=== PATIENT | female | born 1955 ===

== ENCOUNTER 2018-12-26 20:37 | Emergency (ER) | payer OTHER ==
[2018-12-26 20:56] VITALS: BP 136/79; PULSE 65; TEMP 98; BMI 23.1
--- NOTE | 2018-12-26 22:30 | PDOC ---
Documentation entered by Franchesca Vergara SCRIBE, acting as scribe for Felicia Tarn MD. Felicia Tran MD: This documentation has been prepared by the Ursula dave Daisy, SCRIBE, under my direction and personally reviewed by me in its entirety. I confirm that the documentation accurately reflects all work , treatment, procedures, and medical decision making performed by me. History of Present Illness - General Chief Complaint: Injury Stated Complaint: FELL DOWN 3-5 STEPS FACIAL INJURY AND ABRASIONS Time Seen by Provider: 12/26/18 20:47 History Source: Patient Exam Limitations: No Limitations - History of Present Illness Initial Comments: 12/26/18 21:43 The patient is a 63 YOF with a PMH of HLD who presents to the ER with an abrasion to the nose s/p fall prior to arrival. Patient reports she was wearing flip flops, accidentally tripped and fell down 5 staircases earlier today. Patient also noticed an abrasion to the left shoulder and left knee with pain. Denies any loss of consciousness. She reports the fall was witnessed by the son- in-law. Denies any cp, sob, N/V/D/C. Allergies: NKDA ADULT ROS GENERAL/CONSTITUTIONAL: No fever or chills. No weakness. HEAD, EYES, EARS, NOSE AND THROAT: No change in vision. No ear pain or discharge. No sore throat. (+) Abrasion to the nose. CARDIOVASCULAR: No chest pain or shortness of breath. RESPIRATORY: No cough, wheezing, or hemoptysis. GASTROINTESTINAL: No nausea, vomiting, diarrhea or constipation. GENITOURINARY: No dysuria, frequency, or change in urination. MUSCULOSKELETAL: No joint or muscle swelling or pain. No neck or back pain. SKIN: (+) Abrasion to the left shoulder and left knee. NEUROLOGIC: No headache, vertigo, loss of consciousness, or change in strength/ sensation. ENDOCRINE: No increased thirst. No abnormal weight change. HEMATOLOGIC/LYMPHATIC: No anemia, easy bleeding, or history of blood clots. ALLERGIC/IMMUNOLOGIC: No hives or skin allergy. ADULT EXAM GENERAL: Awake, alert, and fully oriented, in no acute distress HEAD: (+) abrasion on the forehead and cheeks bilaterally. EYES: PERRLA, EOMI, sclera anicteric, conjunctiva clear ENT: (+) palpable fracture to the nasal spine with a superficial laceration, no septal hematoma. (+) contusion inside the lips bilaterally, no lacerations. (+) Superficial laceration above right lip, no active bleeding. No loose or fractured teeth, or missing teeth. NECK: Normal ROM, supple, no lymphadenopathy, JVD, or masses LUNGS: Breath sounds equal, clear to auscultation bilaterally. No wheezes, and no crackles HEART: Regular rate and rhythm, normal S1 and S2, no murmurs, rubs or gallops ABDOMEN: Soft, nontender, normoactive bowel sounds. No guarding, no rebound. No masses BACK: No C,T, or L tenderness. EXTREMITIES: Normal range of motion, no edema. No clubbing or cyanosis. No cords, erythema, or tenderness. (+) Left shoulder abrasion without bony tenderness or discomfort, with FROM. (+) Left knee abrasion, no bony tenderness , FROM. All other extremities were normal. NEUROLOGICAL: Cranial nerves II through XII grossly intact. Normal speech, normal gait SKIN: Warm, Dry, normal turgor, no rashes or lesions noted. Past History - Past Medical History Allergies/Adverse Reactions: Allergies Allergy/AdvReac Type Severity Reaction Status Date / Time No Known Allergies Allergy Verified 12/26/18 20:40 Home Medications: Ambulatory Orders Escitalopram Oxalate [Lexapro -] 5 mg PO DAILY 08/13/18 Pravastatin Sodium 10 mg PO DAILY 08/13/18 COPD: No Hypercholesterolemia: Yes Psychiatric Problems: Yes (ANXIETY, DEPRESSION) - Suicide/Smoking/Psychosocial Hx Smoking History: Current every day smoker Have you smoked in the past 12 months: Yes Number of Cigarettes Smoked Daily: 1 Information on smoking cessation initiated: Yes Hx Alcohol Use: Yes (SOCIAL) Drug/Substance Use Hx: No *Physical Exam - Vital Signs Last Vital Signs Temp Pulse Resp BP Pulse Ox 98 F 65 18 136/79 99 12/26/18 20:39 12/26/18 20:39 12/26/18 20:39 12/26/18 20:39 12/26/18 20:39 ED Treatment Course - RADIOLOGY Radiology Studies Ordered: Category Date Time Status FACIAL BONES CT W/O CONTRAST [CT] Stat CT Scan 12/26/18 21:[address] WITHOUT CONTRAST [CT] Stat CT Scan 12/26/18 21:13 Completed *DC/Admit/Observation/Transfer Diagnosis at time of Disposition: Fall, Facial abrasion, Contusion of face, Nasal fracture - Discharge Dispostion Condition at time of disposition: Stable Decision to Admit order: No - Referrals - Patient Instructions Printed Discharge Instructions: DI for Laceration Repair With Dermabond Additional Instructions: For the pain take Tylenol 1000 mg as often this 3-4 times a day if needed. Someone to check on you once tonight during the night. You should be arousable to their normal level of arousability for that time of the night. If you have been vomiting, had a seizure, or you are unable to be aroused or there is a change in your mental status call 911 go back to the nearest emergency department. Take Tylenol as needed for pain. Followup with your primary care doctor Read over and follow Dermabond instructions make sure you keep the glue dry for 72 hours and do not use any lotion screams ointments on it as it will cause it, for early - Post Discharge Activity
[2018-12-26] MEDS ORDERED: ACETAMINOPHEN 500 MG TABLET (FP) ONE (22:34)
[2018-12-26] MEDS ORDERED: ACETAMINOPHEN 500 MG TABLET (FP) PO ONE (22:34)
== END 2018-12-26 22:36 | disposition home or self-care (01) ==
LOC: FER 20:37
DX: S02.2XXA Fracture of nasal bones, initial encounter for closed fracture (principal); S00.83XA Contusion of other part of head, initial encounter; S00.81XA Abrasion of other part of head, initial encounter; W10.9XXA Fall (on) (from) unspecified stairs and steps, initial encounter; Y93.9 Activity, unspecified; Y92.9 Unspecified place or not applicable; E78.5 Hyperlipidemia, unspecified; F17.210 Nicotine dependence, cigarettes, uncomplicated
CPT/HCPCS: 70450-TC; 70486-TC; 99282-25